=== PATIENT | male | born 1990 | race Two or more races ===

== ENCOUNTER 2019-11-10 19:51 | Emergency (ER) | payer OTHER ==
[~2019-11-10] VITALS: Ht 167.6 cm; Wt 108.9 kg
--- NOTE | 2019-11-10 20:00 | NUR ---
c/o cough and congestion. REPORTS COUGHING UP YELLOW PHLEGM. PT APPEARS VERY SHORT OF BREATH. HE IS HEARING-IMPAIRED, AOX4, AMB, VSS. O2 SAT 96% ON RA. NO ACUTE DISTRESS NOTED. MOM AT BEDSIDE. ON MONITOR, MADE COMFORTABLE, READY FOR EVAL.
--- NOTE | 2019-11-10 20:35 | NUR ---
IV LINE ESTABLISHED. PT LOVE WELL
[2019-11-10 20:36] LABS: BASOPHILS % (AUTO) 0.7 % (0.0-2.0); EOSINOPHILS % (AUTO) 2.2 % (0.0-6.0); HEMATOCRIT 48 % (39-51); HEMOGLOBIN 16.1 g/dL (13.5-17.5); LYMPHOCYTES # (AUTO) 2.1 /CMM (0.8-4.8); LYMPHOCYTES % (AUTO) 27.4 % (20.0-44.0); MEAN CORPUSCULAR HGB CONC 34 g/dl (31.0-36.0); MEAN CORPUSCULAR VOLUME 91 fL (80-96); MONOCYTES # (AUTO) 0.7 /CMM (0.1-1.30); MONOCYTES % (AUTO) 8.8 % (2.0-12.0); NEUTROPHILS # (AUTO) 4.6 /CMM (1.8-8.9); NEUTROPHILS % (AUTO) 60.9 % (43.0-81.0); PLATELET COUNT (AUTO) 224 /CMM (150-450); RED BLOOD CELL COUNT(AUTO) 5.28 MIL/uL (4.5-6.0); WHITE BLOOD COUNT (AUTO) 7.5 K/uL (4.3-11.0)
[2019-11-10 20:50] LABS: CALCIUM, SERUM 8.9 mg/dL (8.5-10.1); CARBON DIOXIDE 29 mmol/L (21-32); CHLORIDE 102 mmol/L (98-107); CREATININE 1.2 mg/dL (0.6-1.3); GLUCOSE 310 mg/dL (74-106); POTASSIUM 4.3 mmol/L (3.5-5.1); SODIUM SERUM 137 mmol/L (136-145); UREA NITROGEN, BLOOD 14 mg/dL (7-18)
[2019-11-10 20:56] LABS: ALANINE AMINOTRANSFERASE 68 U/L (12-78); ALBUMIN 3.2 g/dL (3.4-5.0); ALKALINE PHOSPHATASE 124 U/L (46-116); ASPARTATE AMINOTRANSFERASE 63 U/L (15-37); BILIRUBIN,DIRECT 0.1 mg/dL (0.0-0.2); BILIRUBIN,TOTAL 0.4 mg/dL (0.2-1.0); TOTAL PROTEIN, SERUM 7.3 g/dL (6.4-8.2)
[2019-11-10] MEDS ORDERED: IPRATROPIUM NEB FS 0.5 MG/2.5 ML AMPUL.NEB ONE (21:07)
[2019-11-10] MEDS ORDERED: ALBUTEROL FS 2.5 MG/3 ML VIAL.NEB ONE (21:07)
--- NOTE | 2019-11-10 21:08 | NUR ---
RT AT BEDSIDE FOR BREATHING TX
[2019-11-10 21:16] LABS: D-DIMER 0.33 mg/L(FEU (0.17-0.50)
[2019-11-10] MEDS ORDERED: ALBUTEROL FS 2.5 MG/3 ML VIAL.NEB NEB ONE (21:30)
[2019-11-10] MEDS ORDERED: IPRATROPIUM NEB FS 0.5 MG/2.5 ML AMPUL.NEB NEB ONE (21:30)
--- NOTE | 2019-11-10 21:44 | NUR ---
PT UNABLE TO PROVIDE URINE SAMPLE AT THIS TIME. JUICE GIVEN, OK PER TELEVISION NEWSCAST DIRECTOR
[2019-11-10] MEDS ORDERED: DEXAMETHASONE SOD PHOSPHATE 10 MG/ML VIAL ONE (21:53)
[2019-11-10] MEDS ORDERED: DEXAMETHASONE SOD PHOSPHATE 10 MG/ML VIAL MC ONE (22:00)
--- NOTE | 2019-11-10 22:11 | NUR ---
IV removed. Catheter intact and site benign. Pressure and 4x4 applied to site. No bleeding noted.Patient discharged to home in stable condition. Written and verbal after care instructions given. Patient verbalizes understanding of instruction.
[2019-11-10 22:13] VITALS: BP 136/78
[2019-11-10 22:19] LABS: APPEARANCE,URINE Clear (CLEAR); BILIRUBIN,URINE Negative (NEGATIVE); BLOOD, URINE Small Ery/uL (NEGATIVE); COLOR,URINE Yellow (YELLOW); KETONES,URINE Negative (NEGATIVE); LEUKOCYTE ESTERASE ,URINE Negative (NEGATIVE); NITRITE, URINE Negative (NEGATIVE); PROTEIN,URINE Trace mg/dl (NEGATIVE); UGLUCOSE 500 MG/DL mg/dL (NEGATIVE)
[2019-11-10 22:24] LABS: BACTERIA,URINE Rare /HPF (None Seen); SQUAMOUS EPITHELIAL CELL,UR Few /HPF (None Seen); WBC,URINE NONE SEEN /HPF (0-3)
== END 2019-11-10 22:14 | disposition home or self-care (01) ==
LOC: ER 19:54
DX: J20.9 Acute bronchitis, unspecified (principal); R73.9 Hyperglycemia, unspecified; B99.9 Unspecified infectious disease; H10.89 Other conjunctivitis
CPT/HCPCS: 36415; 71045; 80048; 80076; 81001; 84484; 85025; 85378; 85730; 93005; 94640; 99285; J1100; 81000-TC

== ENCOUNTER 2020-09-08 16:28 | Emergency (ER) | payer OTHER ==
[~2020-09-08] VITALS: Ht 167.6 cm; Wt 127.0 kg
[2020-09-08] MEDS ORDERED: ACETAMINOPHEN 325 MG TABLET ONE (17:22)
[2020-09-08] MEDS ORDERED: ALBUTEROL SULFATE INH 18 GM HFA.AER.AD IH PRN (17:30)
[2020-09-08] MEDS ORDERED: ACETAMINOPHEN 325 MG TABLET PO ONE (17:30)
[2020-09-08] MEDS ORDERED: IV NS 0.9% 1,000 ML BAG IV ONE (17:30)
[2020-09-08 17:35] LABS: BASOPHILS # (AUTO) 0.1 /CMM (0.0-0.2); BASOPHILS % (AUTO) 1.6 % (0.0-2.0); EOSINOPHILS % (AUTO) 0.1 % (0.0-6.0); HEMATOCRIT 53 % (39-51); HEMOGLOBIN 17.8 g/dL (13.5-17.5); LYMPHOCYTES # (AUTO) 0.9 /CMM (0.8-4.8); LYMPHOCYTES % (AUTO) 15.6 % (20.0-44.0); MEAN CORPUSCULAR HGB CONC 34 g/dl (31.0-36.0); MEAN CORPUSCULAR VOLUME 90 fL (80-96); MONOCYTES # (AUTO) 0.7 /CMM (0.1-1.30); MONOCYTES % (AUTO) 11.3 % (2.0-12.0); NEUTROPHILS # (AUTO) 4.3 /CMM (1.8-8.9); NEUTROPHILS % (AUTO) 71.4 % (43.0-81.0); PLATELET COUNT (AUTO) 185 /CMM (150-450); RED BLOOD CELL COUNT(AUTO) 5.86 MIL/uL (4.5-6.0); WHITE BLOOD COUNT (AUTO) 6.1 K/uL (4.3-11.0)
[2020-09-08 17:50] LABS: CALCIUM, SERUM 8.4 mg/dL (8.5-10.1); CREATININE 1.2 mg/dL (0.6-1.3); POTASSIUM 4.3 mmol/L (3.5-5.1)
[2020-09-08] MEDS ORDERED: DEXAMETHASONE SOD PHOSPHATE 4 MG/ML VIAL IV ONE (18:00)
[2020-09-08] MEDS ORDERED: DEXAMETHASONE SOD PHOSPHATE 10 MG/ML VIAL ONE (18:09)
[2020-09-08] MEDS ORDERED: IBUPROFEN 600 MG TABLET PO ONE (18:30)
--- NOTE | 2020-09-08 18:30 | NUR ---
Remains Febrile Tod made aware for additional orders
[2020-09-08] MEDS ORDERED: IBUPROFEN 600 MG TABLET ONE (18:34)
--- NOTE | 2020-09-08 19:19 | NUR ---
Ambulatory Pulse Ox 92-93%. Tod made aware
[2020-09-08 19:29] VITALS: BP 129/78
== END 2020-09-08 19:29 | disposition home or self-care (01) ==
LOC: ER 16:32
DX: U07.1 COVID-19 (principal); J12.89 Other viral pneumonia; E86.0 Dehydration
CPT/HCPCS: 36415; 71045; 80048; 85025; 96361; 96374; 99284; J1100; J7030